=== PATIENT | male | born 1955 | race Caucasian/White ===

== ENCOUNTER 2019-10-18 09:24 | Outpatient (CLI) | payer OTHER, SELFPAY ==
--- NOTE | 2019-10-18 09:27 | ECG_ITS ---
Measurements Intervals [place] Rate: 57 P: 12 VT: 182 QRS: -16 QRSD: 89 T: 3 QT: 381 QTc: 373 Interpretive Statements SINUS BRADYCARDIA DELAYED PRECORDIAL R/S TRANSITION BASELINE ARTIFACT- I, II, III, AVR, AVL, AVF, V1-V3 BORDERLINE ECG Electronically Signed On 10-18-2019 10:12:11 CDT by Sabas Akers D.O.
== END 2019-10-18 09:25 | disposition home or self-care (01) ==
PROVIDERS: PCP Family Medicine Adolescent Medicine; Visit Provider Surgery
DX: Z01.818 Encounter for other preprocedural examination (principal); I25.2 Old myocardial infarction; K40.90 Unilateral inguinal hernia, without obstruction or gangrene, not specified as recurrent
CPT/HCPCS: 36415; 86850; 86900; 86901; 93005

== ENCOUNTER 2019-10-25 01:10 | Day surgery (SDC) | payer OTHER, SELFPAY ==
[2019-10-12 09:59] VITALS: BMI 26.1
[2019-10-25] VITALS (19 sets, daily range): BP systolic 117–179; BP diastolic 8–89; PULSE 52–91; RESP 11–16; TEMP 36.6–36.9; O2SAT 97–100
--- NOTE | 2019-10-25 07:30 | PM.HPGS ---
History of Present Illness History of Present Illness Consent: Risks, benefits, and alternatives of a laparoscopic left inguinal hernia repair with mesh have been discussed and questions answered. Patient agrees to proceed with procedure. Chief complaint: Left Inguinal Hernia Narrative: Juan J Peña is a 64 year old male that reported recently to the office at the request of Dr Bejarano for an evaluation of a left inguinal hernia. Patient reports he first noticed a bulge in the left groin about 5 years ago. He reports that recently it has become more uncomfortable than it had been. He reports over the last 9 months he feels like it is building up pressure, feeling the hernia more when coughing. Denies any pervious hernias. He reports he had a heart attack 8 years ago. He reports he had [address] Skinner. Reports he sees him once a year and he has an upcoming appointment at the end of September. He reports he had yearly lab work completed yesterday 08/31/2019 at [facility] in [place].He reports that he had a colonoscopy 2 years ago and was cleared for 10 years ago. Reports this was completed at [facility] by Dr Moreau. He denies any family history of hernias Review of Systems Constitutional: Constitutional: Reports no additional constitutional complaints, Reports fatigue and Denies malaise Eyes: Eyes: Denies change in vision and Denies loss of vision ENT: Reports Normal hearing present, Denies change in voice, Denies dizziness, Denies hoarseness and Denies sore throat Cardiovascular: Cardiovascular: Denies chest pain, Denies leg edema and Denies dyspnea Respiratory: Respiratory: Denies cough, Denies dyspnea and Denies wheezing Gastrointestinal: Gastrointestinal: Denies hematochezia, Denies change in bowel habits and Denies heartburn Comments: no hernia her symptoms on the opposite side. Genitourinary: Genitourinary: Denies urinary frequency and Denies urinary incontinence Neurologic: Reports Normal hearing present, Denies confusion, Denies dizziness, Denies loss of vision, Denies memory loss and Denies seizure-like activity Psychiatric: Psychiatric: Denies confusion, Denies depression and Denies memory loss Endocrine: Endocrine: Denies cold intolerance and Reports fatigue Hematologic/Lymphatic: Hematologic/Lymphatic: Denies easy bleeding and Denies easy bruising Allergic/Immunologic: Allergic/Immunologic: Denies wheezing PMFSH Past Medical History Medical History (Updated 10/25/19 @ 08:01 by Deepak Abebe MD) History of heart attack (2013) has three stents in place History of high cholesterol Hyperlipidemia Hypertension Nontraumatic cerebellar hemorrhage history of 2014 Surgical History Surgical History (Updated 10/25/19 @ 08:01 by Deepak Abebe MD) History of colonoscopy 2018 History of heart artery stent stents times three Social History Social History Smoking status: Never smoker Alcohol intake: never Gender identity (if verbalized by the patient): Male Meds Home Medications and Allergies Home Medications Medication Instructions Recorded Confirmed Type aspirin 81 mg tablet,delayed 81 mg PO DAILY 08/26/19 10/12/19 History release atorvastatin 40 mg tablet 40 mg PO DAILY 08/26/19 10/12/19 History lisinopril 5 mg tablet 5 mg PO DAILY 08/26/19 10/12/19 History metoprolol succinate 25 mg 25 mg PO DAILY 08/26/19 10/12/19 History tablet,extended release 24 hr Allergies Allergy/AdvReac Type Severity Reaction Status Date / Time No Known Allergies Allergy Verified 10/12/19 09:55 Exam Const: General: cooperative, healthy appearing, no acute distress, well developed and alert; No confusion Nutritional Appearance: well nourished Orientation/consciousness: patient oriented x3 and No confusion Limitations: no limitations HENMT: Head: normal to inspection, normocephalic and atraumatic Ears: hearing grossly norm
--- NOTE | 2019-10-25 08:01 | WPDANESEPPF ---
Anes - Initial Pre Proc Eval Procedure: Operation Date: 10/25/19 09:30 Proposed Procedures p Laparoscopic Left Inguinal Hernia Repair With Mesh, Possible Open - Hardik Morrissey MD Date/Time: 10/25/19 08:01 Surgeon: Hardik Morrissey MD Pre Op Diagnosis: Left Inguinal Hernia Patient Data Age: 64 Gender: M Height: 5 ft 8 in Weight: 80.7 kg Allergies Allergy/AdvReac Type Severity Reaction Status Date / Time No Known Allergies Allergy Verified 10/12/19 09:55 Home Medications Medication Instructions Recorded Confirmed Type aspirin 81 mg tablet,delayed 81 mg PO DAILY 08/26/19 10/12/19 History release atorvastatin 40 mg tablet 40 mg PO DAILY 08/26/19 10/12/19 History lisinopril 5 mg tablet 5 mg PO DAILY 08/26/19 10/12/19 History metoprolol succinate 25 mg 25 mg PO DAILY 08/26/19 10/12/19 History tablet,extended release 24 hr Patient hx anesthesia problems: none Family hx anesthesia problems: none PMFSH Past Medical History Medical History (Updated 10/25/19 @ 08:01 by Deepak Abebe MD) History of heart attack (2013) has three stents in place History of high cholesterol Hyperlipidemia Hypertension Nontraumatic cerebellar hemorrhage history of 2014 Surgical History Surgical History (Updated 10/25/19 @ 08:01 by Deepak Abebe MD) History of colonoscopy 2017 History of heart artery stent stents times three Social History Social History Smoking status: Never smoker Alcohol intake: never Gender identity (if verbalized by the patient): Male Anes - Eval Final PreProcedure Day of Procedure 10/25/19 08:01 Patient weight: normal Heart: regular rate and rhythm Lungs: clear to auscultation Airway: Mallampati scale class II Neurological: alert and oriented Last oral intake: >/= 8 hours ASA classification: III Emergent: no Anesthetic plan: proceed Anesthesia type and monitoring: general LMA and standard monitoring Informed Consent: The patient's anesthetic plan and its attendant risks and benefits were discussed with the patient/family/POA. Questions were solicited and answers provided to the satisfaction of the patient/family/POA.
[2019-10-25] MEDS: LACTATED RINGERS 1,000 ML 30 ML IV CONT ×3 (08:18→12:45)
[2019-10-25] MEDS: ceFAZolin 2 GM/D5W 50 ML 2 GM/50 ML BAG IVPB (08:18)
[2019-10-25] MEDS: BUPIVACAINE/EPINEPHRINE 0.5% 30 ML VIAL INFILTRATE (09:08)
[2019-10-25] MEDS: KETOROLAC 30 MG/ML VIAL (*BKC) IM (10:05)
--- NOTE | 2019-10-25 10:05 | SUR.OPER ---
EBL:10CC
--- NOTE | 2019-10-25 10:26 | PM.PROC ---
Procedure Note - Detailed Date of procedure: 11/02/19 Pre-op diagnosis: Left Inguinal Hernia Post-op diagnosis: other (Indirect left inguinal hernia) Procedure performed: Totally extraperitoneal laparoscopic left inguinal hernia repair with mesh Description of procedure: After appropriate marking of the operative site prior to surgery, the patient was taken to the operating room. After induction of adequate general endotracheal anesthesia by [facility] staff, the patient was carefully prepped and draped in a sterile fashion. A timeout was performed confirming the procedure and site of surgery on the LEFT. Following this, local anesthetic was infiltrated into the umbilical area and a vertical incision was made just below the umbilicus. I carefully dissected down to the the anterior rectus sheath on the left and then made a 1 cm vertical slit in the fascia just off the midline. The rectus muscle was retracted to left and then just in front of the posterior rectus sheath, a dissecting balloon was passed onto the pubic bone. After placing slight pressure on the right groin area, this was insufflated with 40 pumps, while watching with the 0 degree laparoscope. It appeared that I was in the proper plane. Following this, the dissecting balloon was removed and replaced by an A- frame conforming balloon. Following this, the 0 degree laparoscope was used to carefully place two 5mm short trocars, just to the right of midline. One suprapubic and other one alf between the umbilicus and the pubic bone. Tedious dissection then occurred in the preperitoneal space exposing the Jim's ligament, the cord structures, the muscular tissue anteriorly, and the retroperitoneum. This was then able to be dissected back and we could visualize the posterior peritoneum. I then dissected up to the level of the umbilicus and it was ready for mesh placement. After carefully confirming all sites and that the mesh would cover the direct space, I carefully rolled the Large Bard 3D Max mesh and slid this through the 12 mm trocar at the umbilical level down into the preperitoneal space. This unfurled nicely and sat nicely against the left groin structures. It nicely covered all spaces and it went back nicely into the preperitoneal space along the anterior-superior iliac spine. I took a picture of it carefully, which showed that the mesh will cover the preperitoneal groin well, and had come down to the posterior border of the peritoneum. Once this was accomplished, I took the patient out of Trendelenburg position, rotated the patient back even, and then observed using a dissector through the higher 5 mm trocar to keep the mesh pushed down against the anterior and posterior abdominal wall retroperitoneally. The peritoneum was then allowed to fall on to the mesh and it held the mesh nicely in place. I carefully removed each of the 5 mm trocars under direct vision and compressed the CO2 gas out of the preperitoneal space, deflating the conforming balloon and removing it. I was happy with the way the peritoneum laid back on the mesh. I felt this will give the patient a good preperitoneal repair. Following this, I carefully removed the conforming balloon. An O Vicryl figure of eight suture was used to close the anterior rectus sheath on the left side of the umbilical incision and then local anesthetic was infiltrated into each of the incisions. Each site was closed with 4-0 undyed Monocryl and a running subcuticular closure of 4-0 undyed Monocryl was used on the skin of umbilicus. Surgical glue was used for dressing. Following this, the patient was taken to the recovery room in good condition. Estimated blood loss, again, was about less than 30 mls. Home going instructions were given for taking it easy for two week and to follow up in the office in tow weeks. Surgeon: Hardik Morrissey MD Sales Representative [employer]: Gumaro NUNN, OR nurse first aid. Estimated blood loss (mL): 5 Drains: No Packing: No Pathology: none sent C
--- NOTE | 2019-10-25 12:05 | SUR.PHASEII ---
1150: report given to EDOUARD Marques.
--- NOTE | 2019-10-25 12:18 | SUR.PHASEII ---
1250 unable to urinate,,iv fluids continue. drinking fluids.
--- NOTE | 2019-10-25 13:01 | SUR.PHASEII ---
1245 unable to urinate,attempted.iv fluids continue ,drinking fluids.
[2019-10-25] MEDS: hydrALAZINE HCL 20 MG/ML VIAL 10 MG IV PUSH (14:11)
[2019-10-25] MEDS: ONDANSETRON INJ 4 MG/2 ML VIAL IV PUSH (14:47)
--- NOTE | 2019-10-25 14:54 | SUR.PHASEII ---
1450: Spoke with Dr. Rojas via phone about nausea/vomiting and whether or not to give another bag of fluids at this time. He said see if the zofran works for now and do not start another bag of fluids at this time.
--- NOTE | 2019-10-25 17:32 | SUR.PHASEII ---
1725: RN contacted Dr. Morrissey via cell phone. Dr. Morrissey did not want to straight cath patient at this time since he isn't uncomfortable and only has 125mL in bladder since last bladder scan. Patient opted to go home without peeing and will report back to ER if he can't pee on own at home. Patient instructed to call Dr. Morrissey's office tomorrow between 0800 and 1200 to report what happened since discharging home.
== END 2019-10-25 17:53 | disposition home or self-care (01) ==
PROVIDERS: PCP Family Medicine Adolescent Medicine; Visit Provider Surgery
PROC: (CPT 49650; principal; 2019-10-25 09:30)
DX: K40.90 Unilateral inguinal hernia, without obstruction or gangrene, not specified as recurrent (principal); I10 Essential (primary) hypertension; E78.5 Hyperlipidemia, unspecified; E78.00 Pure hypercholesterolemia, unspecified; I25.2 Old myocardial infarction; Z95.5 Presence of coronary angioplasty implant and graft; Z79.82 Long term (current) use of aspirin; Z86.73 Personal history of transient ischemic attack (TIA), and cerebral infarction without residual deficits
CPT/HCPCS: 49650; A9270; C1727; C1781; J0131; J0360; J0690; J1100; J1170; J1885; J2250; J2405; J2704; J2710; J3010; J7120